=== PATIENT | female | born 1955 | race Caucasian/White ===

== ENCOUNTER 2022-02-07 10:47 | Emergency (ER) | payer MEDICAID, OTHER ==
[~2022-02-07] VITALS: Ht 167.6 cm; Wt 68.0 kg
[~2022-02-07 10:47] MED LIST: DIPH25CA83; TRAZ-251
[2022-02-07 11:02] VITALS: BP 111/77
== END 2022-02-07 13:56 | disposition home or self-care (01) ==
LOC: ER 10:47
DX: M79.602 Pain in left arm (principal)
CPT/HCPCS: 73060; 73080; 73090; 99284